=== PATIENT | male | born 1950 | race Hispanic/Latino ===

== ENCOUNTER → 2025-01-03 | Outpatient (CLI) | payer OTHER ==
--- NOTE | 2025-01-04 08:22 | HMCIMG ---
EXAMINATION: ULTRASOUND SCREENING OF THE ABDOMINAL AORTA WITH COLOR DOPPLER. CLINICAL HISTORY: Screening. COMPARISON: No prior studies. TECHNIQUE: Real-time grayscale ultrasound images of the aorta. In addition, color Doppler is medically necessary to perform in order to evaluate vascularity and blood flow. FINDINGS: The proximal aorta is dilated and measures 3.0 x 2.1 x 2.4 cm. The mid and distal aspects of the abdominal aorta are normal in caliber measuring 2.7 x 1.9 x 1.6 cm and 1.5 x 1.6 x 1.6 cm in the craniocaudal, AP and transverse dimensions respectively. There is no evidence of plaques in the aorta. The velocity in the aorta is 95 cm/s. The right common iliac artery is normal in caliber measuring 1.0 x 0.9 x 1.0 cm (PSV is 83 cm/s). The left common iliac artery is normal in caliber measuring 1.0 x 1.1 x 1.1 cm (PSV is 156 cm/s). IMPRESSION: Mild intimal thickening in the abdominal aorta. Borderline dilated proximal abdominal aorta. /[place]
== END | disposition home or self-care (01) ==
LOC: RAH 08:49
PROVIDERS: ATTEND Student in an Organized Health Care Education/Training Program
DX: I77.89 Other specified disorders of arteries and arterioles (principal); I25.10 Atherosclerotic heart disease of native coronary artery without angina pectoris; Z13.6 Encounter for screening for cardiovascular disorders
CPT/HCPCS: 76775